=== PATIENT | male | born 1960 | race Caucasian/White ===

== ENCOUNTER 2018-07-06 21:58 | Emergency (ER) | payer OTHER ==
[2018-07-06] MEDS: NITROGLYCERIN (SL) 0.4 MG TAB SL (22:49)
[2018-07-06] MEDS: ONDANSETRON 4 MG INJ IV (22:49)
[2018-07-06] MEDS: morphine 4 MG/ML VIAL IV (22:49)
[2018-07-06 22:52] LABS: ADD MAN DIFF? NO
[2018-07-06 22:55] LABS: BASOPHIL # 0.1 10^3/ul (0.0-0.1); BASOPHILS % 0.6 % (0.0-2.0); EOSINOPHILS # 0.6 10^3/ul (0.0-0.5); EOSINOPHILS % 5.5 % (0.0-7.0); HEMOGLOBIN 15.1 g/dl (14.0-18.0); LYMPHOCYTES # 4.1 10^3/ul (0.8-2.9); LYMPHOCYTES % 34.8 % (15.0-51.0); MEAN CORPUSCULAR HEMOGLOBIN 30.8 pg (29.0-33.0); MEAN CORPUSCULAR HGB CONC 33.6 g/dl (32.0-37.0); MEAN CORPUSCULAR VOLUME 91.8 fl (82.0-101.0); MEAN PLATELET VOLUME 9.5 fl (7.4-10.4); MONOCYTES % 8.4 % (0.0-11.0); NEUTROPHIL # 5.9 10^3/ul (1.6-7.5); PLATELET COUNT 190 10^3/UL (140-415); RED CELL DISTRIBUTION WIDTH 12.2 % (11.5-14.5)
[2018-07-06 22:55] LABS: WHITE BLOOD COUNT 11.7 10^3/ul (4.8-10.8)
[2018-07-06] MEDS: ASPIRIN 81 MG TAB PO (23:01)
[2018-07-06 23:21] LABS: ANION GAP 8 (5-13); BLOOD UREA NITROGEN 10 mg/dl (7-20); CALCIUM 8.8 mg/dl (8.4-10.2); CARBON DIOXIDE 29 mmol/L (21-31); CHLORIDE 104 mmol/L (97-110); CREATININE 0.82 mg/dl (0.61-1.24); Estimated GFR > 60 mL/min (>60); GLUCOSE 86 mg/dl (70-220); POTASSIUM 3.4 mmol/L (3.5-5.1); SODIUM 141 mmol/L (135-144)
[2018-07-06 23:40] LABS: TROPONIN-I 0.047 ng/ml (0.000-0.120)
== END 2018-07-06 23:00 | disposition short-term general hospital (02) ==
LOC: E/R 21:58
DX: I24.9 Acute ischemic heart disease, unspecified (principal); Z87.891 Personal history of nicotine dependence
CPT/HCPCS: 36415; 71045; 80048; 84484; 85025; 93005; 96374; 96375; 99285-25